=== PATIENT | female | born 1985 | race Asian ===

== ENCOUNTER → 2019-12-06 09:21 | Outpatient (REF) | payer OTHER, SELFPAY ==
--- NOTE | 2019-12-06 09:30 | CA_ITS ---
Transthoracic Echocardiogram Patient (Last, First, Middle): Conchita Blanc, Gender: Female Date of : 1985 Age: 34 Procedure Date: 12/06/2019 Procedure Type: Transthoracic Echocardiogram Location: OP Height: 152.4 cm Weight: 44.45 kg BSA: 1.38 m2 Heart Rate: bpm BP: 118 / 70 mmHg State Editor: Referring MD: Jenifer Ray MD Symptoms: R06.02 SOB Study Quality: Fair ECG Rhythm: Sinus Conclusions: - The left ventricular systolic function is normal. The visually estimated ejection fraction is between 60-65%. - No obvious valvular pathology seen on this study. Findings Left Ventricle Normal left ventricular cavity size. There is normal left ventricular wall thickness. The left ventricular systolic function is normal. The visually estimated ejection fraction is between 60-65%. There is no evidence of regional wall motion abnormalities. Diastolic function is normal for age. Right Ventricle Normal right ventricular cavity size and systolic function. Atria The left atrium is normal in size. The right atrium is normal in size. Aortic Valve There is a normal trileaflet aortic valve. There is no aortic valve stenosis. There is no aortic valve regurgitation. Mitral Valve The mitral valve appears normal. There is trace mitral valve regurgitation. There is no mitral valve stenosis. Pulmonic Valve The pulmonic valve was not well visualized. Tricuspid Valve There is trace tricuspid valve regurgitation. The pulmonary artery systolic pressure is normal. Great Vessels The aortic annulus, sinuses of valsalva, and asc aorta are normal in size. Venous The inferior vena cava is normal in size and collapses greater than 50% with inspiration. Pericardium/Pleural There is no evidence of pericardial effusion. Prior Study Comparison No prior study available for comparison. Recommendations, Care & Conclusions No obvious valvular pathology seen on this study. Measurements 2D Linear Measurements Ao Root: 2.50 2.1-3.5 cm LVOT Diam: 1.80 3.0+(-)1.3 cm Mitral Valve MV Pk E: 0.81 MV PK A: 0.97 MV Decel Time: 82.00 E/A: 0.80 E'Lateral: 10.40 E'Medial: 10.70 E/E' Med: 7.60 E/E' Lat: 7.80 PHT: 24.00 MVA PHT: 9.17 Decel [place]: 9.89 Aortic Valve AoV Pk Arvind: 1.05 AoV Mn Arvind: 0.69 AoV VTI: 0.20 AoV Pk Grad: 4.00 Aov Mn Grad: 2.00 MICHAEL Cont.VTI: 2.15 LVOT LVOT Pk Arvind: 0.80 LVOT Mn Arvind: 0.53 LVOT VTI: 0.17 LVOT Pk Grad: 3.00 LVOT Mn Grad: 1.00 LVOT Diam: 1.80 LVOT Area: 2.54 Diastolic Function MV Pk E: 0.81 MV Pk A: 0.97 E/A: 0.80 E'Medial: 10.70 E/E' Med: 7.60 E' Laterial: 10.40 E/E' Lat: 7.80 Tricuspid Valve TR Pk Arvind: 1.60 TR Pk Grad: 10.00 Great Vessels Aorta Ao Root-2D: 2.50 2.0-3.7 cm Pulmonary Valve PV Pk Arvind: 1.05 Peak PV Grad: 4.00 Updated in Other Vendor System with Status of Final Arnulfo Plaza MD electronically signed on 12/07/2019 12:09:10 PM with status of Final
== END ==
LOC: HO.CARD 09:21
PROVIDERS: PCP Internal Medicine; Visit Provider Internal Medicine
DX: R06.02 Shortness of breath (principal)
CPT/HCPCS: 93306

== ENCOUNTER 2020-03-19 15:18 | Outpatient (REF) | payer OTHER, SELFPAY ==
[2020-03-19 15:56] LABS: MANUAL DIFF FLAG NO
[2020-03-19 15:58] LABS: Basophils Absolute Auto 0.1 X10*3/uL (0.0-0.2); Basophils Percent Auto 0.9 % (0-2); Eosinophils Absolute Auto 0.1 X10*3/uL (0.0-0.4); Hematocrit 37.6 % (37-47); Hemoglobin 11.5 g/dl (12.0-16.0); Imm Gran Abs Auto 0.03 X10*3/uL (0.00-0.03); Imm Gran Pct Auto 0.4 % (0.0-0.4); Lymphocytes Absolute Auto 2.1 X10*3/uL (1.2-4.9); Mean Corpuscular HGB Conc 30.6 g/dl (31.0-35.0); Mean Corpuscular Hemoglobin 24.4 pg (27.0-33.0); Mean Corpuscular Volume 79.7 fL (80-98); Mean Platelet Volume 12.3 fL (9.4-12.3); Monocytes Absolute Auto 0.5 X10*3/uL (0.1-1.2); Monocytes Percent Auto 7.2 % (2-11); Neutrophils Absolute Auto 4.3 X10*3/uL (2.0-8.3); Neutrophils Percent Auto 60.5 % (45-73); Platelet Count 276 X10*3/uL (160-400); Red Blood Count 4.72 X10*6/uL (4.20-5.50); Red Cell Distribution Width 13.5 % (11.0-16.0)
[2020-03-19 16:56] LABS: Folate 5.3 ng/mL (> or = 4.0); Vitamin B12 237 pg/mL (200-900)
[2020-03-23 12:57] LABS: Vitamin D 25-OH, D2 <4 ng/mL; Vitamin D 25-OH, D3 12 ng/mL; Vitamin D 25-OH, Total 12 ng/mL (30-100)
== END 2020-03-19 15:19 | disposition home or self-care (01) ==
LOC: HO.LAB 15:18
PROVIDERS: PCP Internal Medicine; Visit Provider Internal Medicine
DX: E53.8 Deficiency of other specified B group vitamins (principal); E55.9 Vitamin D deficiency, unspecified
CPT/HCPCS: 36415; 82306; 82607; 82746; 85025

== ENCOUNTER 2022-03-13 13:35 | Outpatient (REF) | payer OTHER, SELFPAY ==
[2022-03-13 15:08] LABS: Basophils Percent Auto 0.6 % (0-2); Eosinophils Absolute Auto 0.1 X10*3/uL (0.0-0.4); Eosinophils Percent Auto 1.6 % (0-4); Hematocrit 37.6 % (37.0-47.0); Imm Gran Abs Auto 0.02 X10*3/uL (0.00-0.03); Imm Gran Pct Auto 0.3 % (0.0-0.4); Lymphocytes Absolute Auto 2.2 X10*3/uL (1.2-4.9); MANUAL DIFF FLAG SCAN; Mean Corpuscular HGB Conc 31.9 g/dl (31.0-35.0); Mean Corpuscular Hemoglobin 24.1 pg (27.0-33.0); Mean Corpuscular Volume 75.5 fL (80.0-98.0); Monocytes Absolute Auto 0.4 X10*3/uL (0.1-1.2); Monocytes Percent Auto 5.9 % (2-11); Neutrophils Absolute Auto 3.5 x10*3/uL (2.0-8.3); Neutrophils Percent Auto 56.6 % (45-73); PLT CLUMP 1; Red Blood Count 4.98 X10*6/uL (4.20-5.50); Red Cell Distribution Width 14.1 % (11.0-16.0); SCAN SMEAR FLAG 1
[2022-03-13 15:42] LABS: White Blood Count 6.2 X10*3/uL (4.8-10.8)
[2022-03-13 15:43] LABS: Platelet Count 188 X10*3/uL (160-400); SLIDE REVIEW VERIFIED
[2022-03-13 15:52] LABS: Iron 60 mcg/dL (30-160); Percent Iron Saturation 19 % (15-50); Total Iron Binding Capacity 311 mcg/dL (228-428); Unsaturated Iron Binding 251 ug/dL
[2022-03-13 16:02] LABS: Free T4 (Free Thyroxine) 1.16 ng/dL (0.71-1.85); Thyroid Stimulating Hormone 2.97 uIU/mL (0.32-4.0); Vitamin D 25-OH Total 8.6 ng/mL (>30)
[2022-03-13 16:19] LABS: Folate 4.8 ng/mL (> or = 4.0); Vitamin B12 295 pg/mL (200-900)
== END 2022-03-13 13:36 | disposition home or self-care (01) ==
LOC: HO.LAB 13:35
PROVIDERS: PCP Internal Medicine; Visit Provider Internal Medicine
DX: E55.9 Vitamin D deficiency, unspecified (principal); E53.8 Deficiency of other specified B group vitamins; R00.0 Tachycardia, unspecified; D64.9 Anemia, unspecified; J30.2 Other seasonal allergic rhinitis
CPT/HCPCS: 36415; 82306; 82607; 82746; 83540; 84439; 84443; 85025; 86003

== ENCOUNTER 2023-06-11 11:44 | Outpatient (REF) | payer OTHER, SELFPAY ==
[2023-06-11 17:20] LABS: Alanine Aminotransferase 13 U/L (0-31); Albumin Level 4.1 g/dL (3.5-5.0); Alkaline Phosphatase 74 U/L (39-117); Anion Gap 10 (12-20); Aspartate Amino Transferase 17 U/L (5-31); Bilirubin Total 0.3 mg/dL (0.0-1.0); Blood Urea Nitrogen 10 mg/dL (9-16); Carbon Dioxide 25 mmol/L (22-29); Chloride 109 mmol/L (96-108); Cholesterol 192 mg/dL (<200); Estimated Glomerular Filt Rate > 60; Glucose Fasting 83 mg/dL (60-99); HDL Cholesterol 62 mg/dL (>40); LDL Cholesterol Calculated 119 mg/dL (<100); Potassium 4.1 mmol/L (3.3-5.1); Sodium 140 mmol/L (135-145); Total Protein 7.6 g/dL (6.5-8.0); Triglycerides 59 mg/dL (<150); Vitamin D 25-OH Total 5.6 ng/mL (>30)
[2023-06-11 20:09] LABS: Folate 5.2 ng/mL (> or = 4.0)
[2023-06-13 00:54] LABS: Vitamin B12 363 pg/mL (200-900)
== END 2023-06-11 11:45 | disposition home or self-care (01) ==
LOC: HO.LAB 11:44
PROVIDERS: PCP Internal Medicine; Visit Provider Internal Medicine
DX: Z00.00 Encounter for general adult medical examination without abnormal findings (principal); E78.5 Hyperlipidemia, unspecified; E55.9 Vitamin D deficiency, unspecified; E53.8 Deficiency of other specified B group vitamins
CPT/HCPCS: 36415; 80053; 80061; 82306; 82607; 82746

== ENCOUNTER 2023-06-14 10:21 | Outpatient (AMB) | payer OTHER, SELFPAY ==
[2023-06-14 10:28] VITALS: BP 100/66; PULSE 104; O2SAT 100; BMI 17.4
--- NOTE | 2023-06-14 10:28 | A.OFFPC_ITS ---
Vital Signs 06/14/23 10:28 Height 5 ft Weight 89 lb 0.6 oz BMI 17.4 BP 100/66 Blood Pressure Location Lt brachial Position Sitting Pulse 104 H Pulse Source Pulse Oximeter Pulse Oximetry (%) 100 Oxygen Delivery Method Room Air Intake Visit Reasons: Annual exam Intake Note: Patient is here today for a physical. Lead Custodian Required: No Accompanied by: Self / Same As Patient Allergies apple Allergy (Mild, Verified 06/14/23 10:43) Rash carrot Allergy (Mild, Verified 06/14/23 10:43) itchy throat pear Allergy (Mild, Verified 06/14/23 10:43) Unknown house dust Allergy (Unknown, Verified 06/14/23 10:43) Unknown methotrexate Allergy (Unknown, Verified 06/14/23 10:43) sleepiness nut - unspecified Allergy (Unknown, Verified 06/14/23 10:43) Unknown Seasonal Allergies Allergy (Unknown, Verified 06/14/23 10:43) Unknown Medication List - Last Reconciled 06/14/23 by Jenifer Ray MD cetirizine (Zyrtec) 10 mg PO DAILY PRN cholecalciferol (vitamin D3) 25 mcg PO DAILY 90 days cyanocobalamin (vitamin B-12) (Vitamin B-12) 1,000 mcg PO DAILY 90 days folic acid 1 mg PO DAILY 90 days montelukast 10 mg PO DAILY 90 days Tobacco use date assessed: 06/14/23 Dental Screening Dental Screen Date: 06/14/23 Did you have a dental visit in the last 12 months?: No Did you have a dental problem in the last 6 months where you did not have access to dental care?: No HPI HPI Comments History of Present Illness Details This is a 38-year-old female that comes for her physical exam. Has not had a Pap smear and has not been sexually active. Complains of some fatigue and tiredness. Has very low vitamin-D. REPLACED BY [facility] Medical History (Updated 06/14/23 @ 10:56 by Jenifer Ray MD) Hypovitaminosis D B12 deficiency Surgical History No pertinent past surgical history Family History Father CAD (coronary artery disease) Mother Lung cancer Hypertension Sister Muscle weakness Maternal Grandfather CVD (cardiovascular disease) Maternal Grandmother Diabetes Social History Housing: House Alcohol intake: never Patient Tobacco Use Status: Never used Tobacco e-Cigarette/Vaping Use: Never Used Second Hand Smoke Exposure: No service: No Current occupational status: employed Cognitive needs: No Hearing needs: No Vision needs: No Questionnaire PHQ-9 Over the last 2 weeks, how often have you been bothered by any of the following problems? 1. Little interest or pleasure in doing things: not at all 2. Feeling down, depressed, or hopeless: not at all 3. Trouble falling or staying asleep, or sleeping too much: not at all 4. Feeling tired or having little energy: not at all 5. Poor appetite or overeating: not at all 6. Feeling bad about yourself - or that you are a failure or have let yourself or your family down: not at all 7. Trouble concentrating on things, such as reading the newspaper or watching television: not at all 8. Moving or speaking so slowly that other people could have noticed. Or the opposite - being so fidgety or restless that you have been moving around a lot more than usual: not at all 9. Thoughts that you would be better off or of hurting yourself in some way: not at all Total score: 0 Depression Screening Interpretation: Negative Depression Screening Done: Yes 62129 - PHQ-9 Billing: Yes Source: Developed by Drs. Eddie Yip, Jaymie Clarke, Noel Hinojosa and colleagues, with an educational willa from [employer]. Thrive Questionnaire Date Thrive assessed: 06/14/23 I am a: Patient What is your living situation today?: I have a steady place to live Within the past 12 months, did the food you bought not last and you didn't have the money to get more?: Never true Within the past 12 months, did you worry whether your food would run out before you got money to buy more?: Never true Do you have trouble paying for medicines?: No Do you have trouble getting transportation to medical appointments?: No Do you have trouble paying your heating and electricity bill?: No Do you have trouble taking care of your child, family member or friend?: No Do you have trouble with day-to-day activities such as bathing, preparing meals, shopping, managing finances, etc.?: No Are you currently unemployed and looking for a job?: No Are you interested in more education?: No Please select the resources that you would like help with: None Currently or been in a relationship where the following occur: no concerns reported THRIVE Score: 0 AUDIT C Alcohol Use Questionnaire (AUDIT-C) 1. How often do you have a drink containing alcohol?: Never 3. How often do you have six or more drinks on one occasion?: Never Total Score: 0 EULA-7 AMB Questionnaire EULA-7 Date EULA - 7 assessed: 06/14/23 Feeling nervous, anxious, or on edge: 0 = Not at all Not being able to stop or control worryin = Not at all Worrying too much about different things: 0 = Not at all Trouble relaxin = Not at all Being so restless that it is hard to sit still: 0 = Not at all Becoming easily annoyed or irritable: 0 = Not at all Feeling afraid as if something awful might happen: 0 = Not at all Total EULA-7 score (0-4 normal; 5-9 mild; 10-14 moderate; 15-21 severe): 0 Source: Developed by Drs. Eddie Yip, Jaymie Clarke, Noel Hinojosa and colleagues, with an educational willa from [employer]. EULA-7 Assessment Billing EULA-7 Assessment Tool: EULA-7 Assessment 88054 Review of Systems Const All systems reviewed & are unremarkable except as noted in HPI and below Card Denies chest pain at rest, Denies chest pain with activity, Denies edema, Denies irregular heart rhythm, Denies claudication, Denies dyspnea, Denies dyspnea on exertion, Denies orthopnea, Denies paroxysmal nocturnal dyspnea and Denies slow heart rate Resp Denies cough, Denies dyspnea and Denies dyspnea on exertion GI Denies abdominal pain, Denies change in bowel habits, Denies excessive flatus, Denies nausea and Denies vomiting Physical exam (Primary Care) Vital Signs: Last Vital Signs Pulse 104 H 06/14/23 10:28 BP 100/66 06/14/23 10:28 Pulse Ox 100 06/14/23 10:28 Oxygen Delivery Method Room Air 06/14/23 10:28 BMI result Body Mass Index 17.4 Tobacco/Smoking Status: Tobacco use Status Tobacco use date assessed 06/14/23 06/14/23 10:29 Patient Tobacco Use Status Never used Tobacco 06/14/23 10:29 e-Cigarette/Vaping Use Never Used 06/14/23 10:29 PHQ-9: PHQ-9 Score PHQ-9: Total score 0 06/14/23 10:45 Depression Screening Interpretation: Negative Thrive Assessment: Date of Thrive Assessment Date Thrive assessed 06/14/23 06/14/23 10:29 Currently or been in a relationship where the following occur: no concerns reported Const Orientation/consciousness: patient oriented x3 HENMT Head: Yes normal to inspection, Yes normocephalic and Yes atraumatic Ears: external ears normal Eyes General: appearance normal, both eyes and all related structures Eyelids: Yes eyelids normal Conjunctivae: conjunctivae normal Neck Neck: Yes normal visual inspection and Yes supple Resp Effort & Inspection: normal respiratory effort Auscultation: clear to auscultation bilaterally Cardio Jugular venous distension: no JVD Rate: regular rate Rhythm: regular rhythm Heart sounds: S1 normal heart sound present and S2 normal heart sound present GI Inspection: Yes normal to inspection Palpation (GI): Soft to palpation and nontender Auscultation: normal bowel sounds Skin General skin exam: no rashes or lesions noted Neuro General: patient oriented x3 and no focal motor deficits Extrem General: Yes full ROM Psych Appearance: grossly normal Assessment and Plan Assessment & Plan (1) Physical exam: Code(s): Z00.00 - Encounter for general adult medical examination without abnormal findings Plan: Repeat in a year. Orders: Orders ECG 12 lead EKG Today R00.0 - Tachycardia, unspecified Vitamin D 25-OH Total Today E55.9 - Vitamin D deficiency, unspecified Medications: New ergocalciferol (vitamin D2) 1,250 mcg PO QWEEK 13 caps 0RF 90 days Discontinued cholecalciferol (vitamin D3) Discontinued Reason: Patient Completed Course 25 mcg PO DAILY 90 days 90 tabs 3RF E55.9 - Vitamin D deficiency, unspecified Coding Level of Care Code Est Pt Prev Care 18-39y(90122) Diagnoses Physical exam Z00.00 Additional Codes EULA-7 Assessment Billing - EULA-7 Assessment Tool: EULA-7 Assessment 44386 ([id number]) Time Spent (min) 30
== END 2023-06-14 11:05 | disposition home or self-care (01) ==
LOC: HO.HMGH 10:25
PROVIDERS: PCP Internal Medicine; Visit Provider Internal Medicine
DX: Z00.00 Encounter for general adult medical examination without abnormal findings (principal)
CPT/HCPCS: 99395

== ENCOUNTER → 2023-06-14 11:11 | Outpatient (REF) | payer OTHER, SELFPAY ==
--- NOTE | 2023-06-14 11:16 | ECG_ITS ---
Test Reason : TACHY Blood Pressure : / mmHG Vent. Rate : 073 BPM Atrial Rate : 073 BPM P-R Int : 132 ms QRS Dur : 072 ms QT Int : 374 ms P-R-T Axes : 059 086 066 degrees QTc Int : 412 ms Normal sinus rhythm Normal ECG No previous ECGs available Referred By: Jenifer Ray Electronically Signed By:FADY ANGELES MD
== END ==
LOC: HO.CARD 11:11
PROVIDERS: PCP Internal Medicine; Visit Provider Internal Medicine
DX: R00.0 Tachycardia, unspecified (principal)
CPT/HCPCS: 93005

== ENCOUNTER → 2023-06-14 11:16 | Outpatient (BNV) | payer OTHER, SELFPAY | PROVIDERS: PCP Internal Medicine; Visit Provider Internal Medicine Cardiovascular Disease | DX: R00.0 Tachycardia, unspecified (principal) | CPT/HCPCS: 93010 ==

== ENCOUNTER 2024-06-20 10:23 | Outpatient (AMB) | payer OTHER, SELFPAY ==
--- NOTE | 2024-06-20 10:27 | MHC.PC.OV ---
Vital Signs 06/20/24 10:28 Height 5 ft Weight 93 lb BMI 18.2 BP 108/72 Blood Pressure Location Lt brachial Position Sitting Intake Visit Reasons: Physical Exam Intake Note: Patient here for a physical exam Dial Buffer Required: No Accompanied by: Self / Same As Patient Allergies apple Allergy (Mild, Verified 06/20/24 10:35) Rash carrot Allergy (Mild, Verified 06/20/24 10:35) itchy throat pear Allergy (Mild, Verified 06/20/24 10:35) Unknown house dust Allergy (Unknown, Verified 06/20/24 10:35) Unknown methotrexate Allergy (Unknown, Verified 06/20/24 10:35) sleepiness nut - unspecified Allergy (Unknown, Verified 06/20/24 10:35) Unknown Seasonal Allergies Allergy (Unknown, Verified 06/20/24 10:35) Unknown Medication List - Last Reconciled 06/20/24 by Jenifer Ray MD cyanocobalamin (vitamin B-12) (Vitamin B-12) 1,000 mcg PO DAILY 90 days ergocalciferol (vitamin D2) 1,250 mcg PO QWEEK 90 days folic acid 1 mg PO DAILY 90 days montelukast 10 mg PO DAILY 90 days Tobacco use date assessed: 06/20/24 Dental Screening Dental Screen Date: 06/20/24 Did you have a dental visit in the last 12 months?: No Did you have a dental problem in the last 6 months where you did not have access to dental care?: No Was dental information given to patient?: Patient has dentist HPI HPI Comments History of Present Illness Details This is a 39-year-old female that comes for her physical exam. Last Tdap vaccine was 2010 and she declines it today. Has never had a mammogram. Also declines Pap smear. Complains of chronic fatigue and tiredness that she associates by being underweight. [facility] Medical History (Updated 06/20/24 @ 10:45 by Jenifer Ray MD) Hypovitaminosis D B12 deficiency Surgical History No pertinent past surgical history Family History Father CAD (coronary artery disease) Mother Lung cancer Hypertension Sister Muscle weakness Maternal Grandfather CVD (cardiovascular disease) Maternal Grandmother Diabetes Social History Housing: House Alcohol intake: never Patient Tobacco Use Status: Never used Tobacco e-Cigarette/Vaping Use: Never Used Second Hand Smoke Exposure: No service: No Current occupational status: employed Cognitive needs: No Hearing needs: No Vision needs: No Questionnaire PHQ-9 Over the last 2 weeks, how often have you been bothered by any of the following problems? 1. Little interest or pleasure in doing things: not at all 2. Feeling down, depressed, or hopeless: not at all 3. Trouble falling or staying asleep, or sleeping too much: not at all 4. Feeling tired or having little energy: not at all 5. Poor appetite or overeating: not at all 6. Feeling bad about yourself - or that you are a failure or have let yourself or your family down: not at all 7. Trouble concentrating on things, such as reading the newspaper or watching television: not at all 8. Moving or speaking so slowly that other people could have noticed. Or the opposite - being so fidgety or restless that you have been moving around a lot more than usual: not at all 9. Thoughts that you would be better off or of hurting yourself in some way: not at all Total score: 0 Depression Screening Interpretation: Negative Depression Screening Done: Yes 51891 - PHQ-9 Billing: Yes Source: Developed by Drs. Eddie Yip, Jaymie Clarke, Noel Hinojosa and colleagues, with an educational willa from [employer]. Thrive Questionnaire Date Thrive assessed: 06/20/24 I am a: Patient What is your living situation today?: I have a steady place to live Within the past 12 months, did the food you bought not last and you didn't have the money to get more?: Never true Within the past 12 months, did you worry whether your food would run out before you got money to buy more?: Never true Do you have trouble paying for medicines?: No Do you have trouble getting transportation to medical appointments?: No Do you have trouble paying your heating and electricity bill?: No Do you have trouble taking care of your child, family member or friend?: No Do you have trouble with day-to-day activities such as bathing, preparing meals, shopping, managing finances, etc.?: No Are you currently unemployed and looking for a job?: No Are you interested in more education?: No Please select the resources that you would like help with: None Currently or been in a relationship where the following occur: No concerns reported THRIVE Score: 0 AUDIT C Alcohol Use Questionnaire (AUDIT-C) 1. How often do you have a drink containing alcohol?: Never Total Score: 0 Score Reviewed/Action Taken: No EULA-7 AMB Questionnaire EULA-7 Date EULA - 7 assessed: 06/20/24 Feeling nervous, anxious, or on edge: 0 = Not at all Not being able to stop or control worryin = Not at all Worrying too much about different things: 0 = Not at all Trouble relaxin = Not at all Being so restless that it is hard to sit still: 0 = Not at all Becoming easily annoyed or irritable: 0 = Not at all Feeling afraid as if something awful might happen: 0 = Not at all Total EULA-7 score (0-4 normal; 5-9 mild; 10-14 moderate; 15-21 severe): 0 Source: Developed by Drs. Eddie Yip, Jaymie Clarke, Noel Hinojosa and colleagues, with an educational willa from [employer]. EULA-7 Assessment Billing EULA-7 Assessment Tool: EULA-7 Assessment 19157 Review of Systems Const All systems reviewed & are unremarkable except as noted in HPI and below Card Denies chest pain at rest, Denies chest pain with activity, Denies edema, Denies irregular heart rhythm, Denies claudication, Denies dyspnea, Denies dyspnea on exertion, Denies orthopnea, Denies paroxysmal nocturnal dyspnea and Denies slow heart rate Resp Denies cough, Denies dyspnea and Denies dyspnea on exertion GI Denies abdominal pain, Denies change in bowel habits, Denies excessive flatus, Denies nausea and Denies vomiting Physical exam (Primary Care) Vital Signs: Last Vital Signs BP 108/72 06/20/24 10:28 BMI result Body Mass Index 18.2 Tobacco/Smoking Status: Tobacco use Status Tobacco use date assessed 06/20/24 06/20/24 10:33 Patient Tobacco Use Status Never used Tobacco 06/20/24 10:33 e-Cigarette/Vaping Use Never Used 06/20/24 10:33 PHQ-9: PHQ-9 Score PHQ-9: Total score 0 06/20/24 10:38 Depression Screening Interpretation: Negative Thrive Assessment: Date of Thrive Assessment Date Thrive assessed 06/20/24 06/20/24 10:33 Currently or been in a relationship where the following occur: No concerns reported HENMT Head: Yes normal to inspection, Yes normocephalic and Yes atraumatic Ears: external ears normal Eyes General: appearance normal, both eyes and all related structures Eyelids: Yes eyelids normal Conjunctivae: conjunctivae normal Neck Neck: Yes normal visual inspection and Yes supple Resp Effort & Inspection: normal respiratory effort Auscultation: clear to auscultation bilaterally Cardio Jugular venous distension: no JVD Rate: regular rate Rhythm: regular rhythm Heart sounds: S1 normal heart sound present and S2 normal heart sound present GI Inspection: Yes normal to inspection Palpation (GI): Soft to palpation and nontender Auscultation: normal bowel sounds Skin General skin exam: no rashes or lesions noted Neuro General: no focal motor deficits Extrem General: Yes full ROM Psych Appearance: grossly normal Coding Level of Care Code Est Pt Prev Care 40-64y(24191) Diagnoses Physical exam Z00.00 Additional Codes EULA-7 Assessment Billing - EULA-7 Assessment Tool: EULA-7 Assessment 95915 ([id number]) PHQ-9 - 28518 - PHQ-9 Billing: Yes ([id number]) Time Spent (min) 30 Assessment & Plan Assessment & Plan (1) Physical exam: Code(s): Z00.00 - Encounter for general adult medical examination without abnormal findings Category: Medical Plan Repeat in a year. Orders: Orders Vitamin B12 and Folate Today E53.8 - Deficiency of other specified B group vitamins Complete Blood Count Auto Diff Today D64.9 - Anemia, unspecified MM tomosynthesis screening BI Today Z12.31 - Encounter for screening mammogram for malignant neoplasm of breast Vitamin D 25-OH Total Today E55.9 - Vitamin D deficiency, unspecified Lipid Panel Today Z00.00 - Encounter for general adult medical examination without abnormal findings Comprehensive [place]. Panel Fast Today Z00.00 - Encounter for general adult medical examination without abnormal findings Thyroid Stimulating Hormone Today R63.6 - Underweight
[2024-06-20 10:28] VITALS: BP 108/72; BMI 18.2
== END 2024-06-20 10:57 | disposition home or self-care (01) ==
PROVIDERS: PCP Internal Medicine; Visit Provider Internal Medicine
DX: Z00.00 Encounter for general adult medical examination without abnormal findings (principal)

== ENCOUNTER → 2024-06-20 10:23 | Outpatient (BNVA) | payer OTHER, SELFPAY | PROVIDERS: PCP Internal Medicine; Visit Provider Internal Medicine | DX: Z00.00 Encounter for general adult medical examination without abnormal findings (principal) | CPT/HCPCS: 96127; 99396 ==